=== PATIENT | female | born 1995 | race Caucasian/White ===

== ENCOUNTER 2016-09-06 16:09 | Inpatient (IN) | payer OTHER, MEDICAID ==
[~2016-09-06] VITALS: Ht 170.2 cm; Wt 106.1 kg
[2016-09-06 16:32] LABS: BASOPHILS % (AUTO) 0.4 % (0.0-2.0); EOSINOPHILS % (AUTO) 0.6 % (1.0-6.0); HEMATOCRIT 41.1 % (36-46); HEMOGLOBIN 13.6 g/dL (12.0-16.0); LYMPHOCYTES % (AUTO) 22.7 % (22.0-44.0); MEAN CORPUSCULAR HEMOGLOBIN 27.5 pg (26.0-34.0); MEAN CORPUSCULAR HGB CONC 33.2 G/dL (31.0-37.0); MEAN CORPUSCULAR VOLUME 83 fL (80-100); MONOCYTES # (AUTO) 0.6 K/uL (0.1-1.0); MONOCYTES % (AUTO) 6.2 % (2.0-9.0); NEUTROPHILS # (AUTO) 6.3 K/uL (1.8-7.7); NEUTROPHILS % (AUTO) 70.1 % (40.0-70.0); PLATELET COUNT (AUTO) 273 K/uL (150-450); RED BLOOD CELL COUNT(AUTO) 4.96 MIL/uL (4.00-5.20); RED CELL DISTRIBUTION WIDTH 13.2 % (11.5-14.5); WHITE BLOOD COUNT (AUTO) 8.9 K/uL (4.5-11.0)
[2016-09-06 16:40] LABS: ANION GAP 9 mmol/L (8-16); CARBON DIOXIDE 26 mmol/L (22-29); CHLORIDE 103 mmol/L (98-107); CREATININE 0.97 mg/dL (0.60-1.30); GLOMERULAR FILTR. RATE CALC > 60 mL/min (>60); POTASSIUM 4.2 mmol/L (3.5-5.1); SODIUM SERUM 138 mmol/L (136-145); UREA NITROGEN, BLOOD 14 mg/dL (7-18)
[2016-09-06 16:47] LABS: ALANINE AMINOTRANSFERASE 31 U/L (12-78); ALBUMIN 3.6 g/dL (3.4-5.0); ASPARTATE AMINOTRANSFERASE 17 U/L (15-37); BILIRUBIN,TOTAL 0.3 mg/dL (0.1-1.0); TOTAL PROTEIN, SERUM 7.6 g/dL (6.4-8.2)
[2016-09-06] MEDS ORDERED: LORazepam 1 MG TABLET PO ONE (17:30)
[2016-09-06] MEDS ORDERED: IBUPROFEN 600 MG TABLET PO ONE (17:30)
[2016-09-06] MEDS ORDERED: ZOLPIDEM TARTRATE 10 MG TABLET PO PRN (18:15)
[2016-09-06] MEDS ORDERED: HALOPERIDOL 5 MG TABLET PO PRN (18:15)
[2016-09-07 02:29] VITALS: BP 130/87
[2016-09-07 08:00] VITALS: BP 122/62
[2016-09-07] MEDS: LORazepam 2 MG TABLET PO PRN (08:48)
[2016-09-07] MEDS ORDERED: LOPERAMIDE HCL 2 MG CAPSULE PO PRN (10:30)
[2016-09-07] MEDS ORDERED: CloNIDine HCL 0.1 MG TABLET PO PRN (10:30)
[2016-09-07] MEDS ORDERED: MAGNESIUM HYDROXIDE SUSPENSION 30 ML UDCUP PO PRN (10:30)
[2016-09-07] MEDS ORDERED: BACITRACIN 28.4 GM OINTMENT TP PRN (10:30)
[2016-09-07] MEDS ORDERED: ONDANSETRON HCL 4 MG TABLET PO PRN (10:30)
[2016-09-07] MEDS ORDERED: BENZOCAINE/MENTHOL LOZENGE [8 LOZENGES/PACKET] MM PRN (10:30)
[2016-09-07] MEDS ORDERED: MAG HYDROX/AL HYDROX/SIMETH ES 30 ML SUSPENSION UDCUP PO PRN (10:30)
[2016-09-07] MEDS ORDERED: ACETAMINOPHEN 325 MG TABLET PO PRN (10:30)
[2016-09-07] MEDS ORDERED: IBUPROFEN 600 MG TABLET PO PRN (10:30)
[2016-09-07] MEDS ORDERED: PETROLATUM,WHITE 71 GM JELLY TP PRN (10:30)
[2016-09-07] MEDS ORDERED: ALBUTEROL SULFATE HFA 90 MCG/PUFF 8 GM INHALER IH PRN (10:30)
[2016-09-07 18:06] VITALS: BP 130/87
[2016-09-07] MEDS: ACYCLOVIR 200 MG CAPSULE PO SCH (18:09)
[2016-09-07] MEDS: OLANZapine 5 MG TABLET PO SCH (20:46)
[2016-09-07] MEDS ORDERED: OLANZapine 10 MG TABLET PO SCH (21:00)
[2016-09-08 08:04] VITALS: BP 114/62
[2016-09-08] MEDS ORDERED: FLUoxetine HCL 20 MG CAPSULE PO SCH (09:00)
[2016-09-08] MEDS: ACYCLOVIR 200 MG CAPSULE PO SCH ×2 (10:09→16:45)
[2016-09-08] MEDS: NICOTINE 7 MG/24 HOUR PATCH TD SCH (16:53)
[2016-09-08 17:20] VITALS: BP 133/62
[2016-09-08] MEDS: LORazepam 2 MG TABLET PO PRN (18:01)
[2016-09-08] MEDS: OLANZapine 5 MG TABLET PO SCH (20:28)
[2016-09-09] MEDS ORDERED: OLAN5TAB2 PO (00:16)
[2016-09-09] MEDS ORDERED: FLUO-191 PO (00:16)
[2016-09-09] MEDS ORDERED: ACYC200C PO (00:16)
[2016-09-09 08:24] VITALS: BP 111/85
[2016-09-09] MEDS ORDERED: FLUoxetine HCL 20 MG CAPSULE PO SCH (09:00)
[2016-09-09] MEDS: ACYCLOVIR 200 MG CAPSULE PO SCH (09:07)
[2016-09-09] MEDS: NICOTINE 7 MG/24 HOUR PATCH TD SCH (09:09)
== END 2016-09-09 11:46 | disposition home or self-care (01) | DRG 885 ==
LOC: EMS 16:12 → 3EI 20:58
PROVIDERS: ADMIT Psychiatry & Neurology Psychiatry; ATTEND Psychiatry & Neurology Psychiatry
DX: F33.2 Major depressive disorder, recurrent severe without psychotic features (principal); R45.851 Suicidal ideations; F17.210 Nicotine dependence, cigarettes, uncomplicated; F41.9 Anxiety disorder, unspecified; K59.00 Constipation, unspecified; F60.3 Borderline personality disorder; E66.9 Obesity, unspecified; A60.00 Herpesviral infection of urogenital system, unspecified; Z91.5 Personal history of self-harm; Z68.36 Body mass index [BMI] 36.0-36.9, adult; Z72.89 Other problems related to lifestyle; Z81.8 Family history of other mental and behavioral disorders; Z56.0 Unemployment, unspecified; Z71.6 Tobacco abuse counseling
CPT/HCPCS: 99285; 99406; G0480; J3535

== ENCOUNTER 2017-03-13 11:42 | Inpatient (IN) | payer OTHER, MEDICAID ==
[~2017-03-13] VITALS: Ht 167.6 cm; Wt 108.9 kg
[~2017-03-13 11:42] MED LIST: ACYC200C PO; FLUO-191 PO; OLAN5TAB2 PO
[2017-03-13] MEDS ORDERED: VIST50 PO (12:31)
[2017-03-13 13:31] LABS: BASOPHILS % (AUTO) 0.7 % (0.0-2.0); EOSINOPHILS % (AUTO) 1.7 % (1.0-6.0); HEMATOCRIT 38.4 % (36-46); LYMPHOCYTES # (AUTO) 1.7 K/uL (1.0-4.8); LYMPHOCYTES % (AUTO) 23.5 % (22.0-44.0); MEAN CORPUSCULAR HEMOGLOBIN 28.2 pg (26.0-34.0); MEAN CORPUSCULAR HGB CONC 33.8 G/dL (31.0-37.0); MEAN CORPUSCULAR VOLUME 84 fL (80-100); MONOCYTES # (AUTO) 0.6 K/uL (0.1-1.0); MONOCYTES % (AUTO) 8.4 % (2.0-9.0); NEUTROPHILS # (AUTO) 4.8 K/uL (1.8-7.7); NEUTROPHILS % (AUTO) 65.7 % (40.0-70.0); PLATELET COUNT (AUTO) 209 K/uL (150-450); RED BLOOD CELL COUNT(AUTO) 4.59 MIL/uL (4.00-5.20); RED CELL DISTRIBUTION WIDTH 13.9 % (11.5-14.5); WHITE BLOOD COUNT (AUTO) 7.4 K/uL (4.5-11.0)
[2017-03-13 13:39] LABS: ANION GAP 7 mmol/L (8-16); CALCIUM, TOTAL 9.2 mg/dL (8.8-10.5); CARBON DIOXIDE 27 mmol/L (22-29); CHLORIDE 105 mmol/L (98-107); CREATININE 0.98 mg/dL (0.60-1.30); GLOMERULAR FILTR. RATE CALC > 60 mL/min (>60); POTASSIUM 4.5 mmol/L (3.5-5.1); SODIUM SERUM 139 mmol/L (136-145); UREA NITROGEN, BLOOD 13 mg/dL (7-18)
[2017-03-13 13:44] LABS: ALANINE AMINOTRANSFERASE 23 U/L (12-78); ALBUMIN 3.2 g/dL (3.4-5.0); ASPARTATE AMINOTRANSFERASE 11 U/L (15-37); BILIRUBIN,TOTAL 0.4 mg/dL (0.1-1.0); TOTAL PROTEIN, SERUM 6.9 g/dL (6.4-8.2)
[2017-03-13 14:01] LABS: SALICYLATE 1.2 mg/dL (2.8-20.0)
[2017-03-13 14:04] LABS: ACETAMINOPHEN < 2 mcg/mL (10-30)
[2017-03-13] MEDS ORDERED: ZOLPIDEM TARTRATE 10 MG TABLET PO PRN (16:15)
[2017-03-13] MEDS ORDERED: HALOPERIDOL 5 MG TABLET PO PRN (16:15)
[2017-03-13 19:20] VITALS: BP 111/68
[2017-03-14 06:02] VITALS: BP 116/62
[2017-03-14 08:11] VITALS: BP 121/67
[2017-03-14] MEDS: NICOTINE 7 MG/24 HOUR PATCH TD SCH (08:11)
[2017-03-14 08:59] LABS: CHOL/HDL RATIO 4.7 (3.9-5.7)
[2017-03-14] MEDS ORDERED: MAGNESIUM HYDROXIDE SUSPENSION 30 ML UDCUP PO PRN (09:15)
[2017-03-14] MEDS ORDERED: BACITRACIN 28.4 GM OINTMENT TP PRN (09:15)
[2017-03-14] MEDS ORDERED: BENZOCAINE/MENTHOL LOZENGE [8 LOZENGES/PACKET] MM PRN (09:15)
[2017-03-14] MEDS ORDERED: CloNIDine HCL 0.1 MG TABLET PO PRN (09:15)
[2017-03-14] MEDS ORDERED: ALBUTEROL SULFATE HFA 90 MCG/PUFF 8 GM INHALER IH PRN (09:15)
[2017-03-14] MEDS ORDERED: MAG HYDROX/AL HYDROX/SIMETH ES 30 ML SUSPENSION UDCUP PO PRN (09:15)
[2017-03-14] MEDS ORDERED: LOPERAMIDE HCL 2 MG CAPSULE PO PRN (09:15)
[2017-03-14] MEDS ORDERED: PETROLATUM,WHITE 71 GM JELLY TP PRN (09:15)
[2017-03-14] MEDS ORDERED: ACETAMINOPHEN 325 MG TABLET PO PRN (09:15)
[2017-03-14] MEDS ORDERED: IBUPROFEN 600 MG TABLET PO PRN (09:15)
[2017-03-14] MEDS ORDERED: ONDANSETRON HCL 4 MG TABLET PO PRN (09:15)
[2017-03-14 16:19] VITALS: BP 138/86
[2017-03-14] MEDS: LORazepam 2 MG TABLET PO PRN (16:28)
[2017-03-14] MEDS: OLANZapine 5 MG TABLET PO SCH (20:37)
[2017-03-15 06:47] VITALS: BP 118/71
[2017-03-15 08:17] VITALS: BP 122/70
[2017-03-15] MEDS: NICOTINE 7 MG/24 HOUR PATCH TD SCH (08:45)
[2017-03-15] MEDS: FLUoxetine HCL 20 MG CAPSULE PO SCH (08:46)
[2017-03-15] MEDS: LORazepam 2 MG TABLET PO PRN (11:59)
[2017-03-15 16:13] VITALS: BP 107/75
[2017-03-15] MEDS: OLANZapine 5 MG TABLET PO SCH (20:33)
[2017-03-16 06:02] VITALS: BP 119/60
[2017-03-16 08:04] VITALS: BP 117/79
[2017-03-16] MEDS: FLUoxetine HCL 20 MG CAPSULE PO SCH (08:24)
[2017-03-16] MEDS: NICOTINE 7 MG/24 HOUR PATCH TD SCH (08:25)
[2017-03-16 16:16] VITALS: BP 121/68
[2017-03-16] MEDS ORDERED: OLAN5TAB2 PO (16:27)
[2017-03-16] MEDS ORDERED: FLUO-191 PO (16:27)
== END 2017-03-16 17:48 | disposition home or self-care (01) | DRG 885 ==
LOC: EMS 11:44 → B2X 16:13
DX: F33.2 Major depressive disorder, recurrent severe without psychotic features (principal); R45.851 Suicidal ideations; F41.9 Anxiety disorder, unspecified; F17.210 Nicotine dependence, cigarettes, uncomplicated; E66.9 Obesity, unspecified; G47.00 Insomnia, unspecified; Z91.5 Personal history of self-harm; Z71.6 Tobacco abuse counseling; Z72.89 Other problems related to lifestyle; Z71.41 Alcohol abuse counseling and surveillance of alcoholic
CPT/HCPCS: 99285; G0480; G0481

== ENCOUNTER 2020-01-18 01:33 | Inpatient (IN) | payer MEDICAID, OTHER ==
[~2020-01-18] VITALS: Ht 167.6 cm; Wt 112.0 kg
[~2020-01-18 01:33] MED LIST changes: -ACYC200C PO
[2020-01-18] MEDS ORDERED: HALOPERIDOL 5 MG TABLET PO PRN (05:00)
[2020-01-18] MEDS ORDERED: LORazepam 2 MG TABLET PO PRN (05:00)
[2020-01-18 05:09] LABS: BASOPHILS % (AUTO) 0.4 % (0.0-2.0); EOSINOPHILS % (AUTO) 0.7 % (1.0-6.0); HEMATOCRIT 36.9 % (36-46); HEMOGLOBIN 12.3 g/dL (12.0-16.0); LYMPHOCYTES # (AUTO) 2.1 K/uL (1.0-4.8); LYMPHOCYTES % (AUTO) 21.1 % (22.0-44.0); MEAN CORPUSCULAR HEMOGLOBIN 28.2 pg (26.0-34.0); MEAN CORPUSCULAR HGB CONC 33.5 G/dL (31.0-37.0); MEAN CORPUSCULAR VOLUME 84 fL (80-100); MONOCYTES # (AUTO) 0.6 K/uL (0.1-1.0); NEUTROPHILS % (AUTO) 71.8 % (40.0-70.0); PLATELET COUNT (AUTO) 278 K/uL (150-450); RED BLOOD CELL COUNT(AUTO) 4.38 MIL/uL (4.00-5.20); RED CELL DISTRIBUTION WIDTH 13.1 % (11.5-14.5)
[2020-01-18 05:10] LABS: ANION GAP 12 mmol/L (8-16); CALCIUM, TOTAL 8.8 mg/dL (8.8-10.5); CARBON DIOXIDE 22 mmol/L (22-29); CHLORIDE 107 mmol/L (98-107); CREATININE 0.88 mg/dL (0.60-1.30); GLOMERULAR FILTR. RATE CALC > 60 mL/min (>60); GLUCOSE,RANDOM 120 mg/dL (70-110); POTASSIUM 4.7 mmol/L (3.5-5.1); SODIUM SERUM 141 mmol/L (136-145); UREA NITROGEN, BLOOD 19 mg/dL (7-18)
[2020-01-18 05:16] LABS: ALANINE AMINOTRANSFERASE 38 U/L (12-78); ALBUMIN 3.1 g/dL (3.4-5.0); ALKALINE PHOSPHATASE 67 U/L (46-116); ASPARTATE AMINOTRANSFERASE 16 U/L (15-37); BILIRUBIN,TOTAL 0.2 mg/dL (0.1-1.0); TOTAL PROTEIN, SERUM 7.4 g/dL (6.4-8.2)
[2020-01-18 05:25] LABS: SALICYLATE < 2.8 mg/dL (2.8-20.0)
[2020-01-18 06:00] LABS: ACETAMINOPHEN < 2 mcg/mL (10-30)
[2020-01-18] MEDS ORDERED: LOPERAMIDE HCL 2 MG CAPSULE PO PRN (07:45)
[2020-01-18] MEDS ORDERED: NICOTINE 14 MG/24 HOUR PATCH TD PRN (07:45)
[2020-01-18] MEDS ORDERED: CloNIDine HCL 0.1 MG TABLET PO PRN (07:45)
[2020-01-18] MEDS ORDERED: PETROLATUM,WHITE 28 GM JELLY TP PRN (07:45)
[2020-01-18] MEDS ORDERED: ACETAMINOPHEN 325 MG TABLET PO PRN (07:45)
[2020-01-18] MEDS ORDERED: IBUPROFEN 400 MG TABLET PO PRN (07:45)
[2020-01-18] MEDS ORDERED: MAGNESIUM HYDROXIDE SUSPENSION 30 ML UDCUP PO PRN (07:45)
[2020-01-18] MEDS ORDERED: ALBUTEROL SULFATE HFA 90 MCG/PUFF 8 GM INHALER IH PRN (07:45)
[2020-01-18] MEDS ORDERED: GuaiFENesin/D-METHORPHAN [SUGAR-FREE] 200-20MG/10 ML SYRUP UDCUP PO PRN (07:45)
[2020-01-18] MEDS ORDERED: ONDANSETRON HCL 4 MG TABLET PO PRN (07:45)
[2020-01-18] MEDS ORDERED: MAG HYDROX/AL HYDROX/SIMETH ES 30 ML SUSPENSION UDCUP PO PRN (07:45)
[2020-01-18] MEDS ORDERED: DOCUSATE SODIUM 100 MG CAPSULE PO PRN (07:45)
[2020-01-18 09:47] VITALS: BP 129/89
[2020-01-18] MEDS ORDERED: DULO60CA44 PO (14:12)
[2020-01-18] MEDS: DULoxetine HCL 60 MG CAPSULE PO SCH (14:40)
[2020-01-18 16:30] VITALS: BP 118/78
[2020-01-18] MEDS: ZOLPIDEM TARTRATE 10 MG TABLET PO PRN (20:13)
[2020-01-19 07:56] LABS: CHOL/HDL RATIO 3.1 (3.9-5.7)
[2020-01-19 08:00] VITALS: BP 127/63
[2020-01-19] MEDS: DULoxetine HCL 60 MG CAPSULE PO SCH (09:44)
[2020-01-19 13:03] VITALS: BP 132/81
[2020-01-19 16:00] VITALS: BP 148/72
[2020-01-19 17:47] VITALS: BP 140/76
[2020-01-20 08:00] VITALS: BP 128/69
[2020-01-20] MEDS: DULoxetine HCL 60 MG CAPSULE PO SCH (08:38)
[2020-01-20 16:00] VITALS: BP 136/89
[2020-01-21 08:00] VITALS: BP 106/80
[2020-01-21] MEDS: DULoxetine HCL 60 MG CAPSULE PO SCH ×2 (08:52→16:42)
[2020-01-21 17:08] VITALS: BP 99/44
[2020-01-21] MEDS: ZOLPIDEM TARTRATE 10 MG TABLET PO PRN (20:58)
[2020-01-21 22:16] VITALS: BP 122/76
[2020-01-22 08:00] VITALS: BP 132/77
[2020-01-22] MEDS: DULoxetine HCL 60 MG CAPSULE PO SCH ×2 (08:16→16:32)
== END 2020-01-22 16:55 | disposition home or self-care (01) | DRG 881 ==
LOC: EMS 01:33 → 3EI 04:58
PROVIDERS: ADMIT Psychiatry & Neurology Child & Adolescent Psychiatry; ATTEND Psychiatry & Neurology Child & Adolescent Psychiatry
DX: F32.9 Major depressive disorder, single episode, unspecified (principal); E78.5 Hyperlipidemia, unspecified; F41.0 Panic disorder [episodic paroxysmal anxiety]; F60.3 Borderline personality disorder; Z79.899 Other long term (current) drug therapy
CPT/HCPCS: G0480; G0481